=== PATIENT | male | born 1965 | race Caucasian/White ===

== ENCOUNTER 2016-09-05 08:14 | Inpatient (IN) | payer OTHER ==
[2016-09-05 10:44] VITALS: BMI 29.5
--- NOTE | 2016-09-05 12:17 | HP ---
CIWA Score - CIWA Score Nausea/Vomitin-No Nausea/No Vomiting Muscle Tremors: 4-Moderate,w/Arms Extend Anxiety: 3 Agitation: 4-Moderately Restless Paroxysmal Sweats: 3 Orientation: 0-Oriented Tacttile Disturbances: 0-None Auditory Disturbances: 0-None Visual Disturbances: 0-None Headache: 0-None Present CIWA-Ar Total Score: 14 Admission ROS BHS - HPI Chief Complaint: I am here to detox. Allergies/Adverse Reactions: Allergies Allergy/AdvReac Type Severity Reaction Status Date / Time No Known Allergies Allergy Verified 09/05/16 10:54 History of Present Illness: pt is a 51yr old male with a history of alcohol dependence seeking detox for treatment. Exam Limitations: No Limitations - Ebola screening Have you traveled outside of the country in the last 21 days: No Have you had contact with anyone from an Ebola affected area: No Have you been sick,other than usual withdrawal symptoms: No Do you have a fever: No - Review of Systems Constitutional: Chills, Night Sweats, Changes in sleep Respiratory: reports: Cough Cardiac: reports: Syncope GI: reports: Diarrhea, Poor Appetite, Poor Fluid Intake : reports: No Symptoms Reported Musculoskeletal: reports: Other (nerve pain to both feet d/t diabetes) Integumentary: reports: Flushing, Sweating Neuro: reports: Headache, Tingling, Tremors Endocrine: reports: Excessive Sweating, Flushing, Intolerance to Cold, Intolerance to Heat Hematology: reports: No Symptoms Reported Psychiatric: reports: Judgement Intact, Mood/Affect Appropiate, Orientated x3, Agitated, Anxious Other Systems: Reviewed and Negative Patient History - Patient Medical History Hx Anemia: No Hx Asthma: No Hx Chronic Obstructive Pulmonary Disease (COPD): No Hx Cancer: No Hx Cardiac Disorders: No Hx Congestive Heart Failure: No Hx Hypertension: Yes Hx Hypercholesterolemia: Yes Hx Pacemaker: No HX Cerebrovascular Accident: No Hx Seizures: No Hx Dementia: No Hx Diabetes: Yes (metformin 2000mg daily) Hx Gastrointestinal Disorders: No Hx Liver Disease: No Hx Genitourinary Disorders: No Hx Sexually Transmitted Disorders: No Hx Renal Disease (ESRD): No Hx Thyroid Disease: No Hx Human Immunodeficiency Virus (HIV): No Hx Hepatitis C: No Hx Depression: Yes Hx Suicide Attempt: Yes (denies any S/H ideation) Hx Bipolar Disorder: No Hx Schizophrenia: No - Patient Surgical History Past Surgical History: Yes Hx Neurologic Surgery: No Hx Cataract Extraction: No Hx Cardiac Surgery: No Hx Lung Surgery: No Hx Breast Surgery: No Hx Breast Biopsy: No Hx Abdominal Surgery: No Hx Appendectomy: No Hx Cholecystectomy: No Hx Genitourinary Surgery: No Hx Section: No Hx Orthopedic Surgery: No Other Surgical History: 2012 nasal + throat Anesthesia Reaction: No - PPD History Previous Implant?: Yes Documented Results: Negative w/proof Implanted On Prior [facility] Admission?: No PPD to be Administered?: Yes - Reproductive History Patient is a Female of Child Bearing Age (11 -55 yrs old): No - Smoking Cessation Smoking history: Current every day smoker Have you smoked in the past 12 months: Yes Aproximately how many cigarettes per day: 20 Cigars Per Day: 0 Hx Chewing Tobacco Use: No Initiated information on smoking cessation: Yes 'Breaking Loose' booklet given: 09/12/16 - Substance & Tx. History Hx Alcohol Use: Yes Hx Substance Use: Yes Substance Use Type: Alcohol, Marijuana - Substances Abused Alcohol Route: Oral Frequency: Daily Amount used: vodka(1 pint)/beer(6 pks-24 oz cans) Age of first use: 12 Date of Last Use: 09/04/16 Marijuana/Hashish Route: Smoking Frequency: 1-3 times last 30 days Amount used: 1 blunt Age of first use: 13 Date of Last Use: 09/02/16 Family Disease History - Family Disease History Family Disease History: [place]: Mother (), Other: Father (), Brother (no contact), Sister (no contact) Admission Physical Exam S - Vital Signs Vital Signs: Vital Signs - 24 hr 09/05/16 10:42 Temperature 97 F L Pulse Rate 84 Respiratory 20 Rate Blood Pressure 149/84 - Physical General Appearance: Yes: Appropriately Dressed, Tremorous, Irritable, Sweating, Anxious HEENTM: Yes: Within Normal Limits, Hearing grossly Normal, Nasal Congestion, Muffled/Hoarse Voice Respiratory: Yes: Lungs Clear, Normal Breath Sounds, No Respiratory Distress Neck: Yes: No masses,lesions,Nodules Breast: Yes: Within Normal Limits Cardiology: Yes: Regular Rhythm, Regular Rate, S1, S2 Abdominal: Yes: Normal Bowel Sounds, Non Tender, Soft Genitourinary: Yes: Within Normal Limits Back: Yes: Normal Inspection Musculoskeletal: Yes: full range of Motion Extremities: Yes: Normal Capillary Refill, Tremors Neurological: Yes: Fully Oriented, Alert, Normal Response Integumentary: Yes: Normal Color, Diaphoresis Lymphatic: Yes: Within Normal Limits - Diagnostic (1) Alcohol dependence with uncomplicated withdrawal Current Visit: Yes Status: Chronic (2) Nicotine dependence Current Visit: Yes Status: Chronic Qualifiers: Nicotine product type: cigarettes Substance use status: uncomplicated Qualified Code(s): F17.210 - Nicotine dependence, cigarettes, uncomplicated (3) Diabetes mellitus type II, controlled Current Visit: Yes Status: Chronic Qualifiers: Diabetes mellitus complication status: with neurologic complications Diabetes mellitus complication detail: with polyneuropathy Diabetes mellitus fci insulin use: without manager long term care use Qualified Code(s): E11.42 - Type 2 diabetes mellitus with diabetic polyneuropathy; Z79.4 - [facility] (current) use of insulin Comment: last dose metformin "a year ago" (4) Hyperlipidemia Current Visit: Yes Status: Chronic Qualifiers: Hyperlipidemia type: pure hypercholesterolemia Qualified Code(s): E78.00 - Pure hypercholesterolemia, unspecified; E78.0 - Pure hypercholesterolemia Comment: last dose a year ago (5) Hypertension Current Visit: Yes Status: Chronic Qualifiers: Hypertension type: essential hypertension Qualified Code(s): I10 - Essential (primary) hypertension (6) Asthma Current Visit: Yes Status: Acute Qualifiers: Asthma severity: mild intermittent Cleared for Admission S - Detox or Rehab [facility] Level of Care: Medically Managed Detox Regimen/Protocol: Librium [facility] Breath Alcohol Content Breath Alcohol Content: 0 Urine Drug Screen - Results Drug Screen Negative: No Urine Drug Screen Results: THC-Marijuana
[2016-09-05] MEDS ORDERED: MAGNESIUM CITRATE 300 ML BOTTLE PO PRN (12:28)
[2016-09-05] MEDS ORDERED: diphenhydrAMINE HCL 50 MG CAPSULE PO PRN (12:28)
[2016-09-05] MEDS ORDERED: MENTHOL/PHENOL 1 EACH UD MM PRN (12:28)
[2016-09-05] MEDS ORDERED: NICOTINE POLACRILEX 4 MG GUM BUC PRN (12:28)
[2016-09-05] MEDS ORDERED: P-EPHED 60MG/TRIPROLIDI 2.5MG TABLET PO PRN (12:28)
[2016-09-05] MEDS ORDERED: guaiFENesin/D-METHORPHAN HB 10 ML UNIT-DOSE CUPS PO PRN (12:28)
[2016-09-05] MEDS ORDERED: hydrOXYzine PAMOATE 50 MG CAPSULE (FP) PO PRN (12:28)
[2016-09-05] MEDS ORDERED: chlordiazePOXIDE HCL 25 MG CAPSULE PO PRN (12:28)
[2016-09-05] MEDS ORDERED: ACETAMINOPHEN 325 MG TABLET (FP) PO PRN (12:28)
[2016-09-05] MEDS ORDERED: LOPERAMIDE HCL 2 MG CAPSULE PO PRN (12:28)
[2016-09-05] MEDS ORDERED: MAGNESIUM HYDROX 2400MG/30ML ORAL SUSPENSION 30 ML CUP PO PRN (12:28)
[2016-09-05] MEDS ORDERED: IBUPROFEN 400 MG TABLET (FP) PO PRN (12:28)
[2016-09-05] MEDS ORDERED: MAG HYDROX/AL HYDROX/SIMETH 30 ML UNIT-DOSE CUP PO PRN (12:28)
[2016-09-05] MEDS ORDERED: chlordiazePOXIDE HCL 25 MG CAPSULE PO ONE (12:34)
--- NOTE | 2016-09-05 13:46 | CONSULT ---
[facility] Psychiatric Consult - Data Date of interview: 09/05/16 Admission source: [facility] Identifying data: First admission to [facility] for this 51 y/o male seeking detox treatment for alcohol and marijuana dependence.Patient is single without children,homeless,unemployed and supported on odd jobs. Substance Abuse History: - Smoking Cessation. Smoking history: Current every day smoker. Have you smoked in the past 12 months: Yes. Aproximately how many cigarettes per day: 20. Cigars Per Day: 0. Hx Chewing Tobacco Use: No. Initiated information on smoking cessation: Yes. 'Breaking Loose' booklet given : 09/12/16. - Substance & Tx. History. Hx Alcohol Use: Yes. Hx Substance Use : Yes. Substance Use Type: Alcohol, Marijuana. - Substances Abused. Alcohol. Route: Oral. Frequency: Daily. Amount used: vodka(1 pint)/beer(6 pks -24 oz cans). Age of first use: 12. Date of Last Use: 09/04/16. Marijuana/ Hashish. Route: Smoking. Frequency: 1-3 times last 30 days. Amount used: 1 blunt. Age of first use: 13. Date of Last Use: 09/02/16. Confirmed by patient. Medical History: Hypertension,hypercholesterolemia and diabetes mellitus. Psychiatric History: Patient denies history of psychiatric hospitalizations.Mr Aaliyah bolanos having a psychiatric diagnosis although he endorses past OPD care at the [facility] in [facility].Patient reports a history of suicidal ideation to jump onto train tracks in 2016 (did not act on his impulses). Physical/Sexual Abuse/Trauma History: Patient denies. Additional Comment: Urine Drug Screen Results: THC-Marijuana.Noted. Mental Status Exam - Mental Status Exam Alert and Oriented to: Time, Place, Person Cognitive Function: Good Patient Appearance: Well Groomed Mood: Hopeful, Euthymic Affect: Appropriate, Normal Range Patient Behavior: Fatigued, Appropriate, Cooperative Speech Pattern: Clear, Appropriate Voice Loudness: Normal Thought Process: Goal Oriented Thought Disorder: Not Present Hallucinations: Denies Suicidal Ideation: Denies Homicidal Ideation: Denies Insight/Judgement: Poor Sleep: Poorly, Difficulty falling asleep Appetite: Good Muscle strength/Tone: Normal Gait/Station: Normal Psychiatric Findings - Problem List ([place] 1, 2,3) (1) Alcohol dependence with uncomplicated withdrawal Current Visit: Yes Status: Acute (2) Nicotine dependence Current Visit: Yes Status: Acute Qualifiers: Nicotine product type: cigarettes Substance use status: uncomplicated Qualified Code(s): F17.210 - Nicotine dependence, cigarettes, uncomplicated (3) Marijuana dependence Current Visit: Yes Status: Acute (4) Substance induced mood disorder Current Visit: Yes Status: Acute (5) Asthma Current Visit: Yes Status: Chronic Qualifiers: Asthma severity: mild intermittent (6) Diabetes mellitus type II, controlled Current Visit: Yes Status: Chronic Qualifiers: Diabetes mellitus complication status: with neurologic complications Diabetes mellitus complication detail: with polyneuropathy Diabetes mellitus laborer marine terminal insulin use: without long-term use Qualified Code(s): E11.42 - Type 2 diabetes mellitus with diabetic polyneuropathy; Z79.4 - [employer] (current) use of insulin Comment: last dose metformin "a year ago" (7) Hyperlipidemia Current Visit: Yes Status: Chronic Qualifiers: Hyperlipidemia type: pure hypercholesterolemia Qualified Code(s): E78.00 - Pure hypercholesterolemia, unspecified; E78.0 - Pure hypercholesterolemia Comment: last dose a year ago (8) Hypertension Current Visit: Yes Status: Chronic Qualifiers: Hypertension type: essential hypertension Qualified Code(s): I10 - Essential (primary) hypertension (9) S/P nasal polypectomy Current Visit: No Status: Resolved (10) Insomnia Current Visit: Yes Status: Acute - Initial Treatment Plan Initial Treatment Plan: Psychoeducation.Detoxification.Ambien 10 mg po hs.Patient is made aware of risk of parasomnias.Observation.
[2016-09-05] MEDS ORDERED: ALBUTEROL SO4 2.5/IPRATROPIUM 0.5 INH SOL 3 ML VIAL.NEB. NEB ONE (13:51)
--- NOTE | 2016-09-05 16:17 | EKG ---
Test Reason : Blood Pressure : / mmHG Vent. Rate : 078 BPM Atrial Rate : 078 BPM P-R Int : 148 ms QRS Dur : 094 ms QT Int : 412 ms P-R-T Axes : 051 089 044 degrees QTc Int : 469 ms NORMAL SINUS RHYTHM NORMAL ECG NO PREVIOUS ECGS AVAILABLE Confirmed by ANITA LOPEZ, LASHAY ([id number]) on 09/05/2016 4:16:58 PM Referred By: Confirmed By:LASHAY HOWARD MD
[2016-09-05] MEDS: metFORMIN HCL 500 MG TABLET (FP) PO SCH (17:43)
[2016-09-05] MEDS: chlordiazePOXIDE HCL 25 MG CAPSULE PO SCH ×2 (17:44→22:53)
[2016-09-05 20:47] LABS: URINE APPEARANCE CLEAR; URINE BILIRUBIN NEGATIVE (NEGATIVE); URINE BLOOD NEGATIVE (NEGATIVE); URINE COLOR AMBER; URINE GLUCOSE (UA) 1+ (NEGATIVE); URINE KETONE TRACE (NEGATIVE); URINE LEUK ESTERASE NEGATIVE (NEGATIVE); URINE NITRITE NEGATIVE (NEGATIVE); URINE UROBILINOGEN 2.0 E.U/dl E.U./dl (0.2-1.0)
[2016-09-05 20:53] LABS: URINE PROTEIN 2+ (NEGATIVE)
[2016-09-05 20:58] LABS: URINE MUCUS RARE; URINE RBC 1 /hpf (0-3); URINE WBC <1 /hpf (3-5)
[2016-09-05] MEDS: THIAMINE HCL 100 MG TABLET (FP) PO SCH (22:53)
[2016-09-05] MEDS: ATORVASTATIN CA 40 MG TABLET (FP) PO SCH (22:53)
[2016-09-05] MEDS: ZOLPIDEM TARTRATE 10 MG TABLET (PARK CARE ONLY) PO PRN (22:53)
[2016-09-06] MEDS: chlordiazePOXIDE HCL 25 MG CAPSULE PO SCH ×4 (06:57→22:25)
[2016-09-06] MEDS: metFORMIN HCL 500 MG TABLET (FP) PO SCH ×2 (06:57→17:51)
[2016-09-06 09:57] LABS: MCHC 34.3 g/dl (32.0-35.9); MEAN CELL VOLUME 99.3 fl (80-96); PLATELET COUNT 152 K/MM3 (134-434)
[2016-09-06] MEDS: PRENATAL VITAMINS W/ FOLIC ACID TABLET (FP) PO SCH (10:40)
[2016-09-06 10:41] LABS: ALBUMIN 3.9 g/dl (3.4-5.0); ALK PHOS 143 U/L (45-117); ANION GAP 11 (8-16); BILIRUBIN,TOTAL 1.1 mg/dL (0.2-1.0); CALCIUM 8.8 mg/dL (8.5-10.1); CO2 29 mmol/L (21-32); COCKROFT - GAULT 99.65; CREATININE 1.1 mg/dL (0.7-1.3); GLUCOSE,RANDOM 236 mg/dL (74-106); SGOT/AST 93 U/L (15-37); SGPT/ALT 69 U/L (12-78); TOT PROT 7.6 g/dl (6.4-8.2)
[2016-09-06] MEDS: NICOTINE 21 MG/24 HOURS TOPICAL PATCH TD SCH (10:42)
--- NOTE | 2016-09-06 11:24 | PN ---
S CIWA - CIWA Score Nausea/Vomitin Muscle Tremors: 3 Anxiety: 3 Agitation: 3 Paroxysmal Sweats: 2 Orientation: 0-Oriented Tacttile Disturbances: 1-Very Mild Itch/Numbness Auditory Disturbances: 1-Very Mild Visual Disturbances: 1-Very Mild Sensitivity Headache: 2-Mild CIWA-Ar Total Score: 19 BHS Progress Note (SOAP) Subjective: ALERT,IRRITABLE,ANXIOUS,INTERRUPTED SLEEP,TREMOR Objective: 09/06/16 11:22 Vital Signs Temperature 96.4 F L 09/06/16 10:00 Pulse Rate 86 09/06/16 10:00 Respiratory Rate 20 09/06/16 10:00 Blood Pressure 151/78 09/06/16 10:00 O2 Sat by Pulse Oximetry (%) 09/06/16 11:22 EKG NSR Assessment: 09/06/16 11:23 WITHDRAWAL SYMPTOM LABS PENDING Plan: CONTINUE DETOX
[2016-09-06] MEDS: glyBURIDE 2.5 MG TABLET (FP) PO SCH (18:07)
[2016-09-06] MEDS: ATORVASTATIN CA 40 MG TABLET (FP) PO SCH (22:25)
[2016-09-06] MEDS: ZOLPIDEM TARTRATE 10 MG TABLET (PARK CARE ONLY) PO PRN (22:26)
[2016-09-06] MEDS: THIAMINE HCL 100 MG TABLET (FP) PO SCH (22:26)
[2016-09-07] MEDS: chlordiazePOXIDE HCL 25 MG CAPSULE PO SCH ×2 (06:21→10:41)
[2016-09-07] MEDS: metFORMIN HCL 500 MG TABLET (FP) PO SCH ×2 (06:26→17:00)
[2016-09-07] MEDS: glyBURIDE 2.5 MG TABLET (FP) PO SCH (06:26)
[2016-09-07] MEDS: PRENATAL VITAMINS W/ FOLIC ACID TABLET (FP) PO SCH (10:40)
--- NOTE | 2016-09-07 10:40 | PN ---
[facility] CIWA - CIWA Score Nausea/Vomitin Muscle Tremors: 3 Anxiety: 3 Agitation: 2 Paroxysmal Sweats: 1-Minimal Palms Moist Orientation: 0-Oriented Tacttile Disturbances: 1-Very Mild Itch/Numbness Auditory Disturbances: 1-Very Mild Visual Disturbances: 1-Very Mild Sensitivity Headache: 2-Mild CIWA-Ar Total Score: 17 BHS Progress Note (SOAP) Subjective: ALERT,IRRITABLE,ANXIOUS,INTERRUPTED SLEEP,TREMOR Objective: 09/07/16 10:39 Vital Signs Temperature 98.4 F 09/07/16 09:30 Pulse Rate 88 09/07/16 09:30 Respiratory Rate 18 09/07/16 09:30 Blood Pressure 129/76 09/07/16 09:30 O2 Sat by Pulse Oximetry (%) Laboratory Last Values WBC 6.0 K/mm3 (4.0-10.0) 09/06/16 06:00 RBC 4.88 M/mm3 (4.00-5.60) 09/06/16 06:00 Hgb 16.6 GM/dL (11.7-16.9) 09/06/16 06:00 Hct 48.5 % (35.4-49) 09/06/16 06:00 MCV 99.3 fl (80-96) H 09/06/16 06:00 MCHC 34.3 g/dl (32.0-35.9) 09/06/16 06:00 RDW 13.0 % (11.9-15.9) 09/06/16 06:00 Plt Count 152 K/MM3 (134-434) 09/06/16 06:00 MPV 8.0 fl (7.5-11.1) 09/06/16 06:00 Sodium 135 mmol/L (136-145) L 09/06/16 06:00 Potassium 4.3 mmol/L (3.5-5.1) 09/06/16 06:00 Chloride 95 mmol/L (98-107) L 09/06/16 06:00 Carbon Dioxide 29 mmol/L (21-32) 09/06/16 06:00 Anion Gap 11 (8-16) 09/06/16 06:00 BUN 12 mg/dL (7-18) 09/06/16 06:00 Creatinine 1.1 mg/dL (0.7-1.3) 09/06/16 06:00 Creat Clearance w eGFR > 60 (>60) 09/06/16 06:00 POC Glucometer 198 UNITS (()) 09/07/16 06:25 Random Glucose 236 mg/dL (74-106) H 09/06/16 06:00 Calcium 8.8 mg/dL (8.5-10.1) 09/06/16 06:00 Total Bilirubin 1.1 mg/dL (0.2-1.0) H 09/06/16 06:00 AST 93 U/L (15-37) H 09/06/16 06:00 ALT 69 U/L (12-78) 09/06/16 06:00 Alkaline Phosphatase 143 U/L (45-117) H 09/06/16 06:00 Total Protein 7.6 g/dl (6.4-8.2) 09/06/16 06:00 Albumin 3.9 g/dl (3.4-5.0) 09/06/16 06:00 Urine Color Jelena 09/05/16 15:45 Urine Appearance Clear 09/05/16 15:45 Urine pH 5.0 (5.0-8.0) 09/05/16 15:45 Ur Specific [place] 1.020 (1.005-1.025) 09/05/16 15:45 Urine Protein 2+ (NEGATIVE) H 09/05/16 15:45 Urine Glucose (UA) 1+ (NEGATIVE) H 09/05/16 15:45 Urine Ketones Trace (NEGATIVE) H 09/05/16 15:45 Urine Blood Negative (NEGATIVE) 09/05/16 15:45 Urine Nitrite Negative (NEGATIVE) 09/05/16 15:45 Urine Bilirubin Negative (NEGATIVE) 09/05/16 15:45 Urine Urobilinogen 2.0 e.u/dl E.U./dl (0.2-1.0) 09/05/16 15:45 Ur Leukocyte Esterase Negative (NEGATIVE) 09/05/16 15:45 Urine RBC 1 /hpf (0-3) 09/05/16 15:45 Urine WBC <1 /hpf (3-5) 09/05/16 15:45 Ur Epithelial Cells Rare /hpf (FEW) 09/05/16 15:45 Urine Mucus Rare 09/05/16 15:45 RPR Titer Nonreactive (NONREACTIVE) 09/06/16 06:00 Assessment: 09/07/16 10:40 WITHDRAWAL SYMPTOM Plan: CONTINUE DETOX,BGM MONITORING,CONTINUE METFORMIN AND GLYBURIDE
[2016-09-07] MEDS: NICOTINE 21 MG/24 HOURS TOPICAL PATCH TD SCH (10:55)
[2016-09-07] MEDS ORDERED: glyBURIDE 2.5 MG TABLET (FP) PO ONE (11:47)
[2016-09-07] MEDS: chlordiazePOXIDE 5 MG CAPSULE PO SCH ×2 (17:00→22:29)
[2016-09-07] MEDS: ALBUTEROL SO4 2.5/IPRATROPIUM 0.5 INH SOL 3 ML VIAL.NEB. NEB PRN (21:02)
[2016-09-07] MEDS: ATORVASTATIN CA 40 MG TABLET (FP) PO SCH (22:30)
[2016-09-07] MEDS: THIAMINE HCL 100 MG TABLET (FP) PO SCH (22:30)
[2016-09-08] MEDS: chlordiazePOXIDE 5 MG CAPSULE PO SCH ×2 (05:58→10:37)
[2016-09-08] MEDS: metFORMIN HCL 500 MG TABLET (FP) PO SCH ×2 (06:00→17:36)
[2016-09-08] MEDS: glyBURIDE 2.5 MG TABLET (FP) PO SCH (07:37)
[2016-09-08] MEDS ORDERED: GABAPENTIN 100 MG CAPSULE (FP) PO ONE (09:45)
[2016-09-08] MEDS: NICOTINE 21 MG/24 HOURS TOPICAL PATCH TD SCH (10:37)
[2016-09-08] MEDS: PRENATAL VITAMINS W/ FOLIC ACID TABLET (FP) PO SCH (10:37)
[2016-09-08] MEDS: ALBUTEROL SO4 2.5/IPRATROPIUM 0.5 INH SOL 3 ML VIAL.NEB. NEB PRN ×2 (10:43→19:57)
--- NOTE | 2016-09-08 10:56 | PN ---
S Progress Note (SOAP) Subjective: ALERT,IRRITABLE,ANXIOUS,INTERRUPTED SLEEP Objective: 09/08/16 10:55 Vital Signs Temperature 97.9 F 09/08/16 09:50 Pulse Rate 90 09/08/16 09:50 Respiratory Rate 18 09/08/16 09:50 Blood Pressure 122/71 09/08/16 09:50 O2 Sat by Pulse Oximetry (%) Assessment: 09/08/16 10:55 WITHDRAWAL SYMPTOM Plan: CONTINUE DETOX,DISCHARGE IN AM
[2016-09-08] MEDS: GABAPENTIN 100 MG CAPSULE (FP) PO SCH ×2 (14:22→22:27)
[2016-09-08] MEDS: chlordiazePOXIDE HCL 10 MG CAPSULE PO SCH ×2 (17:36→22:27)
[2016-09-08] MEDS: THIAMINE HCL 100 MG TABLET (FP) PO SCH (22:27)
[2016-09-08] MEDS: ATORVASTATIN CA 40 MG TABLET (FP) PO SCH (22:27)
[2016-09-08] MEDS: ZOLPIDEM TARTRATE 10 MG TABLET (PARK CARE ONLY) PO PRN (22:28)
[2016-09-09] MEDS: chlordiazePOXIDE HCL 10 MG CAPSULE PO SCH (05:53)
[2016-09-09] MEDS: GABAPENTIN 100 MG CAPSULE (FP) PO SCH (05:53)
[2016-09-09 06:20] VITALS: BP 119/62; PULSE 85; TEMP 97.9
[2016-09-09] MEDS: glyBURIDE 2.5 MG TABLET (FP) PO SCH (07:26)
[2016-09-09] MEDS: metFORMIN HCL 500 MG TABLET (FP) PO SCH (07:26)
--- NOTE | 2016-09-09 08:22 | PN ---
S Progress Note (SOAP) Subjective: ALERT,NO COMPLAINT Objective: 09/09/16 08:20 Vital Signs Temperature 97.9 F 09/09/16 06:19 Pulse Rate 85 09/09/16 06:19 Respiratory Rate 20 09/09/16 06:19 Blood Pressure 119/62 09/09/16 06:19 O2 Sat by Pulse Oximetry (%) Assessment: 09/09/16 08:21 DETOX COMPLETED,NO WITHDRAWAL SYMPTOM Plan: DISCHARGE TODAY,FOLLOW UP WITH AFTER CARE PROGRAM ARRANGEMENT
--- NOTE | 2016-09-09 08:25 | DS ---
[facility] Detox Discharge Summary Admission Date: 09/05/16 Discharge Date: 09/09/16 - History Present History: Alcohol Dependence Additional Comments: FOLLOW UP WITH AFTER [facility] PROGRAM ARRANGEMENT AND PMD FOR MEDICAL PROBLEM Pertinent Past History: TYPE 2 DM HYPERLIPIDEMIA NICOTINE DEPENDENCE - Physical Exam Results Vital Signs: Vital Signs Temperature 97.9 F 09/09/16 06:19 Pulse Rate 85 09/09/16 06:19 Respiratory Rate 20 09/09/16 06:19 Blood Pressure 119/62 09/09/16 06:19 O2 Sat by Pulse Oximetry (%) Pertinent Admission Physical Exam Findings: WITHDRAWAL SYMPTOM - Treatment Hospital Course: Detox Protocol Followed, Detoxed Safely, Responded well, Discharged Condition Good Patient has Accepted a Rehab Referral to: DECLINED - Medication Discharge Medications: Ambulatory Orders Albuterol Sulfate Inhaler - [Ventolin HFA Inhaler -] 2 puff IH Q4H PRN #1 inhaler 09/09/16 Atorvastatin Ca [Lipitor] 40 mg PO HS #30 tab 09/09/16 Gabapentin [Neurontin -] 100 mg PO TID #90 tab 09/09/16 Glyburide 2.5 mg PO DAILY #30 tab 09/09/16 Metformin HCl [Glucophage] 1,000 mg PO BID #60 tab 09/09/16 - Diagnosis (1) Alcohol dependence with uncomplicated withdrawal Status: Acute (2) Nicotine dependence Status: Acute Qualifiers: Nicotine product type: cigarettes Substance use status: uncomplicated Qualified Code(s): F17.210 - Nicotine dependence, cigarettes, uncomplicated (3) Asthma Status: Chronic Qualifiers: Asthma severity: mild intermittent (4) Diabetes mellitus type II, controlled Status: Chronic Qualifiers: Diabetes mellitus complication status: with neurologic complications Diabetes mellitus complication detail: with polyneuropathy Diabetes mellitus residential insulin use: without termite technician use Qualified Code(s): E11.42 - Type 2 diabetes mellitus with diabetic polyneuropathy; Z79.4 - termite technician (current) use of insulin (5) Hyperlipidemia Status: Chronic Qualifiers: Hyperlipidemia type: pure hypercholesterolemia Qualified Code(s): E78.00 - Pure hypercholesterolemia, unspecified; E78.0 - Pure hypercholesterolemia - AMA Did Patient Leave Against Medical Advice: No
[2016-09-09] MEDS ORDERED: ALBUTEROL SO4 6.7 GM HFA INHALER IH PRN (08:28)
== END 2016-09-09 09:30 | disposition home or self-care (01) | DRG 775 ==
LOC: YASAS 08:14 → Y6N 11:56
PROVIDERS: ADMIT Internal Medicine; ATTEND Internal Medicine
PROC: HZ2ZZZZ Detoxification Services for Substance Abuse Treatment (ICD-10-PCS; principal; 2016-09-05)
DX: F10.230 Alcohol dependence with withdrawal, uncomplicated (principal); F17.210 Nicotine dependence, cigarettes, uncomplicated; F19.24 Other psychoactive substance dependence with psychoactive substance-induced mood disorder; I10 Essential (primary) hypertension; E11.42 Type 2 diabetes mellitus with diabetic polyneuropathy; J45.20 Mild intermittent asthma, uncomplicated; E78.5 Hyperlipidemia, unspecified; G47.00 Insomnia, unspecified; Z79.84 Long term (current) use of oral hypoglycemic drugs; Z91.5 Personal history of self-harm
CPT/HCPCS: 36415; 80053; 81003; 81015; 85027; 86593; 93005; 93010; 94640

== ENCOUNTER 2018-06-08 21:19 | Inpatient (IN) | payer OTHER ==
[2018-06-08 21:52] VITALS: BMI 30.2
[2018-06-08] MEDS ORDERED: MELATONIN 5 MG TABLETS PO PRN (22:00)
--- NOTE | 2018-06-08 23:03 | HP ---
CIWA Score Nausea/Vomitin-No Nausea/No Vomiting Muscle Tremors: 1-None Visible, but [place] Anxiety: 4-Mod. Anxious/Guarded Agitation: 4-Moderately Restless Paroxysmal Sweats: 4-Forehead w/Sweat Beads Orientation: 0-Oriented Tacttile Disturbances: 0-None Auditory Disturbances: 0-None Visual Disturbances: 0-None Headache: 0-None Present CIWA-Ar Total Score: 13 - Admission Criteria [facility]AS[facility] Guidelines: Admission for Medically Managed Detox: Requires at least one of the followin. CIWA greater than 12 2. Seizures within the past 24 hours 3. Delirium tremens within the past 24 hours 4. Hallucinations within the past 24 hours 5. Acute intervention needed for co occurring medical disorder 6. Acute intervention needed for co occurring psychiatric disorder 7. Severe withdrawal that cannot be handled at a lower level of care (continued vomiting, continued diarrhea, abnormal vital signs) requiring intravenous medication and/or fluids 8. Patient presents the following: CIWA greater than 12 Admission Criteria Met: Admission criteria met Admission ROS [facility] Chief Complaint: C/O WORSENING WITHDRAWAL SX'S. SEEKING DETOX FROM ALCOHOL Allergies/Adverse Reactions: Allergies Allergy/AdvReac Type Severity Reaction Status Date / Time No Known Allergies Allergy Verified 06/09/18 02:33 History of Present Illness: 53 Y.O. MALE WITH ALCOHOLISM HERE FOR DETOX. CLIENT IS SELF REFERRED. HE IS KNOWN TO THIS PROGRAM. LAST HERE 2016. PRESENTS WITH C/O WORSENING WITHDRAWAL SX 'S, CIWA 13. REPORTS LONGEST CLEAN TIME 14 MONTHS RELAPSING 4 DAYS AGO. CLIENT REPORTS HX/O DT'S WITH WITHDRAWAL SX'S. UNABLE TO STOP DRINKING DUE TO WITHDRAWAL SX'S AND IS EEKING DETOX TO HELP HIM STOP. HE ALSO REPORTS HX/O SI AND SELF INJURY ASSOCIATED WITH ALCOHOL WITHDRAWAL. HX/O DM NON COMPLIANT WITH MEDICATION REGIMEN DENIES SEIZURE D/O. CURRENTLY LIVES AT [facility], UNEMPLOYED, DENIES LEGALS . Exam Limitations: No Limitations - Ebola screening Have you traveled outside of the country in the last 21 days: No (N) Have you had contact with anyone from an Ebola affected area: No Have you been sick,other than usual withdrawal symptoms: No Do you have a fever: No - Review of Systems Constitutional: Loss of Appetite, Night Sweats, Changes in sleep EENT: reports: Dental Problems (MISSING TEETH) Respiratory: reports: No Symptoms reported Cardiac: reports: No Symptoms Reported GI: reports: Poor Appetite, Poor Fluid Intake : reports: No Symptoms Reported Musculoskeletal: reports: Back Pain (CHRONIC), Joint Pain (CHRONIC), Neck Pain ( CHRONIC) Integumentary: reports: Flushing Neuro: reports: No Symptoms reported Endocrine: reports: Other (HX/O DM) Hematology: reports: No Symptoms Reported Psychiatric: reports: Orientated x3, Agitated (IRRITABLE), Anxious, Depressed Other Systems: Reviewed and Negative Patient History - Patient Medical History Hx Anemia: No Hx Asthma: No Hx Chronic Obstructive Pulmonary Disease (COPD): No Hx Cancer: No Hx Cardiac Disorders: No Hx Congestive Heart Failure: No Hx Hypertension: Yes Hx Hypercholesterolemia: Yes Hx Pacemaker: No HX Cerebrovascular Accident: No Hx Seizures: No Hx Dementia: No Hx Diabetes: Yes (NOT TAKING MEDS) Hx Gastrointestinal Disorders: No Hx Liver Disease: No Hx Genitourinary Disorders: No Hx Sexually Transmitted Disorders: No Hx Renal Disease (ESRD): No Hx Thyroid Disease: No Hx Human Immunodeficiency Virus (HIV): No Hx Hepatitis C: No Hx Depression: Yes Hx Suicide Attempt: Yes Hx Bipolar Disorder: No Hx Schizophrenia: No - Patient Surgical History Past Surgical History: Yes Hx Neurologic Surgery: No Hx Cataract Extraction: No Hx Cardiac Surgery: No Hx Lung Surgery: No Hx Breast Surgery: No Hx Breast Biopsy: No Hx Abdominal Surgery: No Hx Appendectomy: No Hx Cholecystectomy: No Hx Genitourinary Surgery: No Hx Section: No Hx Orthopedic Surgery: No Other Surgical History: 2013 nasal + throat Anesthesia Reaction: No - PPD History Previous Implant?: Yes Documented Results: Negative w/proof Implanted On Prior [facility] Admission?: Yes Date: 09/07/16 Results: 0MM PPD to be Administered?: Yes - Smoking Cessation Smoking history: Current every day smoker Have you smoked in the past 12 months: Yes Aproximately how many cigarettes per day: 20 Cigars Per Day: 0 Hx Chewing Tobacco Use: No Initiated information on smoking cessation: Yes 'Breaking Loose' booklet given: 06/08/18 - Substance & Tx. History Hx Alcohol Use: Yes Hx Substance Use: Yes Substance Use Type: Alcohol Hx Substance Use Treatment: Yes ([facility]) - Substances Abused VODKA/BEER Route: Oral Frequency: Daily Amount used: 2 PINTS/ 3 TALL BOYS Age of first use: 14 Date of Last Use: 06/08/18 Family Disease History - Family Disease History Family Disease History: [place]: Mother (), Other: Father (), Brother (no contact), Sister (no contact) Admission Physical Exam [facility] - Vital Signs Vital Signs: Vital Signs - 24 hr 06/08/18 21:50 Temperature 98.5 F Pulse Rate 97 H Respiratory 18 Rate Blood Pressure 148/73 - Physical General Appearance: Yes: Appropriately Dressed, Alcohol on Breath, Tremorous ( FELT), Anxious, Other (FLUSHED SKIN WITH REDNESS) HEENTM: Yes: EOMI, Normocephalic, Normal Voice, JODI, Pharynx Normal, Other ( MISSING TEETH) Respiratory: Yes: Chest Non-Tender, Lungs Clear, Normal Breath Sounds, No Respiratory Distress, No Accessory Muscle Use Neck: Yes: No masses,lesions,Nodules, Supple, Trachea in good position Breast: Yes: Breast Exam Deferred Cardiology: Yes: Regular Rhythm, Regular Rate, S1, S2 Abdominal: Yes: Normal Bowel Sounds, Non Tender, Soft, Protuberent Genitourinary: Yes: Within Normal Limits (NO C/O) Back: Yes: Normal Inspection Musculoskeletal: Yes: full range of Motion, Gait Steady Extremities: Yes: Normal Capillary Refill, Normal Range of Motion, Non-Tender, Tremors (FELT) Neurological: Yes: director of informatics II-XII NML intact, Fully Oriented, Alert, Motor Strength 5/5, Depressed Affect Integumentary: Yes: Warm, Other (FLUSHED RED SKIN) Lymphatic: Yes: Within Normal Limits - Diagnostic (1) At risk for dehydration Current Visit: Yes Status: Acute (2) Flushed complexion Current Visit: Yes Status: Acute (3) Non compliance w medication regimen Current Visit: Yes Status: Chronic (4) Alcohol dependence with uncomplicated withdrawal Current Visit: Yes Status: Acute (5) Insomnia Current Visit: Yes Status: Chronic (6) Nicotine dependence Current Visit: Yes Status: Chronic Qualifiers: Nicotine product type: cigarettes Substance use status: uncomplicated Qualified Code(s): F17.210 - Nicotine dependence, cigarettes, uncomplicated (7) Substance induced mood disorder Current Visit: Yes Status: Chronic (8) Diabetes mellitus type II, controlled Current Visit: Yes Status: Chronic Qualifiers: Diabetes mellitus snf insulin use: without snf use Diabetes mellitus complication status: with neurologic complications Diabetes mellitus complication detail: with polyneuropathy Qualified Code(s): E11.42 - Type 2 diabetes mellitus with diabetic polyneuropathy Comment: last dose metformin "a year ago" (9) Hyperlipidemia Current Visit: No Status: Chronic Qualifiers: Hyperlipidemia type: pure hypercholesterolemia Qualified Code(s): E78.00 - Pure hypercholesterolemia, unspecified Comment: last dose a year ago (10) Hypertension Current Visit: Yes Status: Chronic Qualifiers: Hypertension type: essential hypertension Qualified Code(s): I10 - Essential (primary) hypertension (11) Depression (emotion) Current Visit: No Status: Suspected Qualifiers: Depression Type: dysthymia Qualified Code(s): F34.1 - Dysthymic disorder Cleared for Admission [facility] - Detox or Rehab S Level of Care: Medically Managed Detox Regimen/Protocol: Librium Claeared for Rehab Admission: No S Breath Alcohol Content Breath Alcohol Content: 0.197 Urine Drug Screen - Results Drug Screen Negative: Yes Inpatient Rehab Admission - Rehab Decision to Admit Inpatient rehab admission?: No
[2018-06-08] MEDS ORDERED: MAGNESIUM HYDROX 2400MG/30ML ORAL SUSPENSION 30 ML CUP PO PRN (23:07)
[2018-06-08] MEDS ORDERED: LOPERAMIDE HCL 2 MG CAPSULE PO PRN (23:07)
[2018-06-08] MEDS ORDERED: MAG HYDROX/AL HYDROX/SIMETH 30 ML UNIT-DOSE CUP PO PRN (23:07)
[2018-06-08] MEDS ORDERED: MENTHOL/PHENOL 1 EACH UD MM PRN (23:07)
[2018-06-08] MEDS ORDERED: ACETAMINOPHEN 325 MG TABLET (FP) PO PRN (23:07)
[2018-06-08] MEDS ORDERED: P-EPHED 60MG/TRIPROLIDI 2.5MG TABLET PO PRN (23:07)
[2018-06-08] MEDS ORDERED: MAGNESIUM CITRATE 300 ML BOTTLE PO PRN (23:07)
[2018-06-08] MEDS ORDERED: hydrOXYzine PAMOATE 50 MG CAPSULE (FP) PO PRN (23:07)
[2018-06-08] MEDS ORDERED: IBUPROFEN 400 MG TABLET (FP) PO PRN (23:07)
[2018-06-08] MEDS ORDERED: guaiFENesin/D-METHORPHAN HB 10 ML UNIT-DOSE CUPS PO PRN (23:07)
[2018-06-08] MEDS ORDERED: NICOTINE POLACRILEX 2 MG GUM BC PRN (23:07)
[2018-06-09] MEDS ORDERED: chlordiazePOXIDE HCL 25 MG CAPSULE PO PRN (00:17)
[2018-06-09] MEDS: chlordiazePOXIDE HCL 25 MG CAPSULE PO SCH ×4 (05:29→22:21)
[2018-06-09] MEDS: NICOTINE 21 MG/24 HOURS TOPICAL PATCH TD SCH (10:38)
[2018-06-09] MEDS: PRENATAL VITAMINS W/ FOLIC ACID TABLET (FP) PO SCH (10:38)
[2018-06-09 10:56] LABS: ALBUMIN 3.6 g/dl (3.4-5.0); ALK PHOS 112 U/L (45-117); ANION GAP 11 MMOL/L (8-16); BILIRUBIN,TOTAL 0.4 mg/dL (0.2-1); BLOOD UREA NITROGEN 10 mg/dL (7-18); CHLORIDE 101 mmol/L (98-107); CO2 26 mmol/L (21-32); CREATININE 0.6 mg/dL (0.55-1.3); GLUCOSE,RANDOM 149 mg/dL (74-106); POTASSIUM 3.4 mmol/L (3.5-5.1); SGOT/AST 16 U/L (15-37); SGPT/ALT 16 U/L (13-61); SODIUM 139 mmol/L (136-145)
[2018-06-09 11:11] LABS: HEMATOCRIT 37.7 % (35.4-49); HEMOGLOBIN 13.2 GM/dL (11.7-16.9); MCH 31.2 pg (25.7-33.7); MCHC 35.1 g/dl (32.0-35.9); MEAN CELL VOLUME 89.1 fl (80-96); MEAN PLT VOLUME 7.3 fl (7.5-11.1); PLATELET COUNT 252 K/MM3 (134-434); RBC 4.23 M/mm3 (4.00-5.60); RDW 13.5 % (11.9-15.9); WHITE BLOOD COUNT 6.3 K/mm3 (4.0-10.0)
--- NOTE | 2018-06-09 14:27 | PN ---
[facility] CIWA - CIWA Score Nausea/Vomitin-Mild Nausea/No Vomiting Muscle Tremors: 3 Anxiety: 1-Mildly Anxious Agitation: 2 Paroxysmal Sweats: 1-Minimal Palms Moist Orientation: 1-Uncertain about Date Tacttile Disturbances: 0-None Auditory Disturbances: 0-None Visual Disturbances: 0-None Headache: 1-Very Mild CIWA-Ar Total Score: 10 S Progress Note (SOAP) Subjective: tremor sweating restlessness trouble sleep at night Objective: 06/09/18 14:29 Vital Signs Temperature 98.4 F 06/09/18 13:50 Pulse Rate 88 06/09/18 13:50 Respiratory Rate 2 L 06/09/18 13:50 Blood Pressure 160/88 06/09/18 13:50 O2 Sat by Pulse Oximetry (%) Laboratory Last Values WBC 6.3 K/mm3 (4.0-10.0) 06/09/18 08:00 RBC 4.23 M/mm3 (4.00-5.60) 06/09/18 08:00 Hgb 13.2 GM/dL (11.7-16.9) 06/09/18 08:00 Hct 37.7 % (35.4-49) D 06/09/18 08:00 MCV 89.1 fl (80-96) 06/09/18 08:00 MCH 31.2 pg (25.7-33.7) 06/09/18 08:00 MCHC 35.1 g/dl (32.0-35.9) 06/09/18 08:00 RDW 13.5 % (11.9-15.9) 06/09/18 08:00 Plt Count 252 K/MM3 (134-434) D 06/09/18 08:00 MPV 7.3 fl (7.5-11.1) L 06/09/18 08:00 Sodium 139 mmol/L (136-145) 06/09/18 08:00 Potassium 3.4 mmol/L (3.5-5.1) L 06/09/18 08:00 Chloride 101 mmol/L (98-107) 06/09/18 08:00 Carbon Dioxide 26 mmol/L (21-32) 06/09/18 08:00 Anion Gap 11 MMOL/L (8-16) 06/09/18 08:00 BUN 10 mg/dL (7-18) 06/09/18 08:00 Creatinine 0.6 mg/dL (0.55-1.3) 06/09/18 08:00 Creat Clearance w eGFR > 60 (>60) 06/09/18 08:00 POC Glucometer 204 UNITS (80-120) 06/09/18 05:29 Random Glucose 149 mg/dL (74-106) H 06/09/18 08:00 Calcium 8.0 mg/dL (8.5-10.1) L 06/09/18 08:00 Total Bilirubin 0.4 mg/dL (0.2-1) 06/09/18 08:00 AST 16 U/L (15-37) 06/09/18 08:00 ALT 16 U/L (13-61) 06/09/18 08:00 Alkaline Phosphatase 112 U/L (45-117) 06/09/18 08:00 Total Protein 7.0 g/dl (6.4-8.2) 06/09/18 08:00 Albumin 3.6 g/dl (3.4-5.0) 06/09/18 08:00 RPR Titer Nonreactive (NONREACTIVE) 06/09/18 08:00 HIV 1&2 Antibody Screen Negative 06/09/18 08:00 HIV P24 Antigen Negative 06/09/18 08:00 lab noted hypertension begin lisinopril 10 mg bid 06/09/18 14:32 Assessment: 06/09/18 14:29 withdrawal sx 06/09/18 14:32 hypertension Plan: continue detox begin lisinopril
[2018-06-09] MEDS: LISINOPRIL 10 MG TABLET (FP) PO SCH ×2 (17:00→22:21)
[2018-06-09] MEDS ORDERED: POTASSIUM CHLORIDE TABS 20 MEQ TABLET.ER (FP) PO ONE (20:52)
--- NOTE | 2018-06-09 20:53 | PN ---
[facility] Progress Note Note: kdur 40 meq po x1 dose for K+ 3.4
[2018-06-09] MEDS ORDERED: THIAMINE HCL 100 MG TABLET (FP) PO SCH (22:00)
--- NOTE | 2018-06-10 02:35 | EKG ---
Test Reason : Blood Pressure : / mmHG Vent. Rate : 094 BPM Atrial Rate : 094 BPM P-R Int : 152 ms QRS Dur : 094 ms QT Int : 378 ms P-R-T Axes : 079 087 053 degrees QTc Int : 472 ms NORMAL SINUS RHYTHM NORMAL ECG WHEN COMPARED WITH ECG OF 05-SEP-2016 12:32, NO SIGNIFICANT CHANGE WAS FOUND Confirmed by LASHAY HOWARD MD ([id number]) on 06/10/2018 2:35:25 AM Referred By: PATRICK Confirmed By:LASHAY HOWARD MD
[2018-06-10] MEDS: chlordiazePOXIDE HCL 25 MG CAPSULE PO SCH ×2 (07:18→10:38)
[2018-06-10] MEDS: LISINOPRIL 10 MG TABLET (FP) PO SCH (10:38)
[2018-06-10] MEDS: PRENATAL VITAMINS W/ FOLIC ACID TABLET (FP) PO SCH (10:38)
[2018-06-10] MEDS: NICOTINE 21 MG/24 HOURS TOPICAL PATCH TD SCH (10:38)
--- NOTE | 2018-06-10 11:23 | PN ---
S CIWA - CIWA Score Nausea/Vomitin-Mild Nausea/No Vomiting Muscle Tremors: 2 Anxiety: 1-Mildly Anxious Agitation: 1-Slight > Activity Paroxysmal Sweats: 1-Minimal Palms Moist Orientation: 0-Oriented Tacttile Disturbances: 0-None Auditory Disturbances: 0-None Visual Disturbances: 0-None Headache: 1-Very Mild CIWA-Ar Total Score: 7 [facility] Progress Note (SOAP) Subjective: tremor sweating restlessness social with peers in day room Objective: 06/10/18 11:21 Vital Signs Temperature 96.5 F L 06/10/18 09:32 Pulse Rate 62 06/10/18 09:32 Respiratory Rate 18 06/10/18 09:32 Blood Pressure 121/65 06/10/18 09:32 O2 Sat by Pulse Oximetry (%) Laboratory Last Values WBC 6.3 K/mm3 (4.0-10.0) 06/09/18 08:00 RBC 4.23 M/mm3 (4.00-5.60) 06/09/18 08:00 Hgb 13.2 GM/dL (11.7-16.9) 06/09/18 08:00 Hct 37.7 % (35.4-49) D 06/09/18 08:00 MCV 89.1 fl (80-96) 06/09/18 08:00 MCH 31.2 pg (25.7-33.7) 06/09/18 08:00 MCHC 35.1 g/dl (32.0-35.9) 06/09/18 08:00 RDW 13.5 % (11.9-15.9) 06/09/18 08:00 Plt Count 252 K/MM3 (134-434) D 06/09/18 08:00 MPV 7.3 fl (7.5-11.1) L 06/09/18 08:00 Sodium 139 mmol/L (136-145) 06/09/18 08:00 Potassium 3.4 mmol/L (3.5-5.1) L 06/09/18 08:00 Chloride 101 mmol/L (98-107) 06/09/18 08:00 Carbon Dioxide 26 mmol/L (21-32) 06/09/18 08:00 Anion Gap 11 MMOL/L (8-16) 06/09/18 08:00 BUN 10 mg/dL (7-18) 06/09/18 08:00 Creatinine 0.6 mg/dL (0.55-1.3) 06/09/18 08:00 Creat Clearance w eGFR > 60 (>60) 06/09/18 08:00 POC Glucometer 162 UNITS (80-120) 06/10/18 07:07 Random Glucose 149 mg/dL (74-106) H 06/09/18 08:00 Calcium 8.0 mg/dL (8.5-10.1) L 06/09/18 08:00 Total Bilirubin 0.4 mg/dL (0.2-1) 06/09/18 08:00 AST 16 U/L (15-37) 06/09/18 08:00 ALT 16 U/L (13-61) 06/09/18 08:00 Alkaline Phosphatase 112 U/L (45-117) 06/09/18 08:00 Total Protein 7.0 g/dl (6.4-8.2) 06/09/18 08:00 Albumin 3.6 g/dl (3.4-5.0) 06/09/18 08:00 RPR Titer Nonreactive (NONREACTIVE) 06/09/18 08:00 HIV 1&2 Antibody Screen Negative 06/09/18 08:00 HIV P24 Antigen Negative 06/09/18 08:00 lab noted Assessment: 06/10/18 11:22 withdrawal sx received potassim 40 meq one dose yesterday addition 10 meq one dose today Plan: continue detox repeat K+
[2018-06-10] MEDS ORDERED: POTASSIUM CHLORIDE TABS 10 MEQ TABLET.ER (FP) PO SCH (12:15)
[2018-06-10 14:35] VITALS: BP 127/84; PULSE 82; TEMP 97.2
--- NOTE | 2018-06-10 15:10 | DS ---
[facility] Detox Discharge Summary Admission Date: 06/09/18 Discharge Date: 06/10/18 - History Present History: Alcohol Dependence Additional Comments: 53 years old male admitted on 06/08/18 for alcohol withdrawal stabilization insists to leave the detox unit that he is homeless and his friend is willing to take him in today and he has to make a few phone calls to 12 step community self help meetings friends patient is motivate to maintain sober through community network operations lead system patient is alert no acute distress denies suicidal ideation Pertinent Past History: encourage the patient to utilize community health services such as urgent care [facility] etc for hypertension management as well as self management dietary regimen - Physical Exam Results Vital Signs: Vital Signs Temperature 97.2 F L 06/10/18 14:34 Pulse Rate 82 06/10/18 14:34 Respiratory Rate 18 06/10/18 14:34 Blood Pressure 127/84 06/10/18 14:34 O2 Sat by Pulse Oximetry (%) Pertinent Admission Physical Exam Findings: alcohol withdrawal sx Laboratory Last Values WBC 6.3 K/mm3 (4.0-10.0) 06/09/18 08:00 RBC 4.23 M/mm3 (4.00-5.60) 06/09/18 08:00 Hgb 13.2 GM/dL (11.7-16.9) 06/09/18 08:00 Hct 37.7 % (35.4-49) D 06/09/18 08:00 MCV 89.1 fl (80-96) 06/09/18 08:00 MCH 31.2 pg (25.7-33.7) 06/09/18 08:00 MCHC 35.1 g/dl (32.0-35.9) 06/09/18 08:00 RDW 13.5 % (11.9-15.9) 06/09/18 08:00 Plt Count 252 K/MM3 (134-434) D 06/09/18 08:00 MPV 7.3 fl (7.5-11.1) L 06/09/18 08:00 Sodium 139 mmol/L (136-145) 06/09/18 08:00 Potassium 3.4 mmol/L (3.5-5.1) L 06/09/18 08:00 Chloride 101 mmol/L (98-107) 06/09/18 08:00 Carbon Dioxide 26 mmol/L (21-32) 06/09/18 08:00 Anion Gap 11 MMOL/L (8-16) 06/09/18 08:00 BUN 10 mg/dL (7-18) 06/09/18 08:00 Creatinine 0.6 mg/dL (0.55-1.3) 06/09/18 08:00 Creat Clearance w eGFR > 60 (>60) 06/09/18 08:00 POC Glucometer 162 UNITS (80-120) 06/10/18 07:07 Random Glucose 149 mg/dL (74-106) H 06/09/18 08:00 Calcium 8.0 mg/dL (8.5-10.1) L 06/09/18 08:00 Total Bilirubin 0.4 mg/dL (0.2-1) 06/09/18 08:00 AST 16 U/L (15-37) 06/09/18 08:00 ALT 16 U/L (13-61) 06/09/18 08:00 Alkaline Phosphatase 112 U/L (45-117) 06/09/18 08:00 Total Protein 7.0 g/dl (6.4-8.2) 06/09/18 08:00 Albumin 3.6 g/dl (3.4-5.0) 06/09/18 08:00 RPR Titer Nonreactive (NONREACTIVE) 06/09/18 08:00 HIV 1&2 Antibody Screen Negative 06/09/18 08:00 HIV P24 Antigen Negative 06/09/18 08:00 lab noted patient agrees to eat potassium rich food - Treatment Hospital Course: Detox Protocol Followed, Responded well Patient has Accepted a Rehab Referral to: 12 step community self help support groups - Medication Discharge Medications: Ambulatory Orders Lisinopril [Prinivil] 10 mg PO BID #14 tablet 06/10/18 - Diagnosis (1) Alcohol dependence with uncomplicated withdrawal Status: Acute (2) Asthma Status: Chronic Qualifiers: Asthma severity: mild Asthma persistence: intermittent Asthma complication type: with status asthmaticus Qualified Code(s): J45.22 - Mild intermittent asthma with status asthmaticus (3) Hypertension Status: Chronic Qualifiers: Hypertension type: essential hypertension Qualified Code(s): I10 - Essential (primary) hypertension (4) Nicotine dependence Status: Acute Qualifiers: Nicotine product type: cigarettes Substance use status: in withdrawal Qualified Code(s): F17.213 - Nicotine dependence, cigarettes, with withdrawal (5) Substance induced mood disorder Status: Suspected - AMA Did Patient Leave Against Medical Advice: Yes
[2018-06-11] MEDS ORDERED: chlordiazePOXIDE 5 MG CAPSULE PO SCH (05:00)
[2018-06-12] MEDS ORDERED: chlordiazePOXIDE HCL 10 MG CAPSULE PO SCH (05:00)
== END 2018-06-10 14:30 | disposition left against medical advice (07) | DRG 770 ==
LOC: YASAS 21:19 → Y3N 06-09
PROVIDERS: ADMIT Surgery; ATTEND Surgery
PROC: HZ2ZZZZ Detoxification Services for Substance Abuse Treatment (ICD-10-PCS; principal; 2018-06-09)
DX: F10.230 Alcohol dependence with withdrawal, uncomplicated (principal); F17.213 Nicotine dependence, cigarettes, with withdrawal; F34.1 Dysthymic disorder; F19.24 Other psychoactive substance dependence with psychoactive substance-induced mood disorder; I10 Essential (primary) hypertension; E11.9 Type 2 diabetes mellitus without complications; J45.22 Mild intermittent asthma with status asthmaticus; E87.6 Hypokalemia; M54.2 Cervicalgia; M54.5 Low back pain; K00.0 Anodontia; R23.2 Flushing; Z91.89 Other specified personal risk factors, not elsewhere classified; Z91.14 Patient's other noncompliance with medication regimen
CPT/HCPCS: 36415; 80053; 82962; 85027; 86593; 87389; 93005; 93010

== ENCOUNTER 2020-07-11 21:52 | Inpatient (IN) | payer OTHER ==
[2020-07-11 22:38] VITALS: BMI 29.2
[2020-07-11] MEDS ORDERED: MAGNESIUM CITRATE 300 ML BOTTLE PO PRN (23:22)
[2020-07-11] MEDS ORDERED: chlordiazePOXIDE HCL 25 MG CAPSULE PO PRN (23:22)
[2020-07-11] MEDS ORDERED: MAGNESIUM HYDROX 2400MG/30ML ORAL SUSPENSION 30 ML CUP PO PRN (23:22)
[2020-07-11] MEDS ORDERED: ACETAMINOPHEN 325 MG TABLET (FP) PO PRN ×2 (23:22)
[2020-07-11] MEDS ORDERED: NICOTINE POLACRILEX 2 MG GUM BUC PRN (23:22)
[2020-07-11] MEDS ORDERED: METHOCARBAMOL 500 MG TABLET PO PRN (23:22)
[2020-07-11] MEDS ORDERED: MENTHOL/PHENOL 1 EACH UD MM PRN (23:22)
[2020-07-11] MEDS ORDERED: BISMUTH SUBSALICYLATE 524 MG/30 ML UD PO PRN (23:22)
[2020-07-11] MEDS ORDERED: MAG HYDROX/AL HYDROX/SIMETH 30 ML UNIT-DOSE CUP PO PRN (23:22)
[2020-07-11] MEDS ORDERED: IBUPROFEN 400 MG TABLET (FP) PO PRN (23:22)
[2020-07-11] MEDS ORDERED: ONDANSETRON *ODT* 4 MG TABLET SL PRN (23:22)
[2020-07-12] MEDS: chlordiazePOXIDE HCL 25 MG CAPSULE PO SCH ×5 (01:45→22:39)
[2020-07-12] MEDS: NICOTINE 21 MG/24 HOURS TOPICAL PATCH TD SCH (10:44)
[2020-07-12] MEDS: PRENATAL VITAMINS W/ FOLIC ACID TABLET (FP) PO SCH (10:44)
[2020-07-12 11:03] LABS: ALBUMIN 3.4 g/dl (3.4-5.0); BLOOD UREA NITROGEN 12.4 mg/dL (7-18)
[2020-07-12 11:04] LABS: POTASSIUM 4.4 mmol/L (3.5-5.1)
[2020-07-12 11:07] LABS: CREATININE 0.7 mg/dL (0.55-1.3)
[2020-07-12 11:08] LABS: BILIRUBIN,TOTAL 0.7 mg/dL (0.2-1); TOT PROT 6.5 g/dl (6.4-8.2)
[2020-07-12 11:14] LABS: HEMOGLOBIN 13.4 GM/dL (11.7-16.9); MCH 30.5 pg (25.7-33.7); MCHC 34.3 g/dl (32.0-35.9); MEAN CELL VOLUME 88.9 fl (80-96); MEAN PLT VOLUME 8.3 fl (7.5-11.1); PLATELET COUNT 192 K/MM3 (134-434); RBC 4.38 M/mm3 (4.00-5.60); RDW 14.9 % (11.9-15.9); WHITE BLOOD COUNT 6.8 K/mm3 (4.0-10.0)
[2020-07-12] MEDS ORDERED: MELATONIN 5 MG TABLETS PO SCH (22:00)
[2020-07-12] MEDS: THIAMINE HCL 100 MG TABLET (FP) PO SCH (22:38)
[2020-07-12] MEDS: LISINOPRIL 10 MG TABLET PO SCH (22:39)
[2020-07-12] MEDS: MELATONIN 5 MG TABLETS PO PRN (22:40)
[2020-07-13] MEDS: chlordiazePOXIDE HCL 25 MG CAPSULE PO SCH ×4 (05:23→22:27)
[2020-07-13] MEDS: LISINOPRIL 10 MG TABLET PO SCH ×2 (10:10→22:26)
[2020-07-13] MEDS: PRENATAL VITAMINS W/ FOLIC ACID TABLET (FP) PO SCH (10:11)
[2020-07-13] MEDS: NICOTINE 21 MG/24 HOURS TOPICAL PATCH TD SCH (10:11)
[2020-07-13] MEDS: THIAMINE HCL 100 MG TABLET (FP) PO SCH (22:26)
[2020-07-13] MEDS: MELATONIN 5 MG TABLETS PO PRN (22:28)
[2020-07-14] MEDS ORDERED: chlordiazePOXIDE HCL 10 MG CAPSULE PO PRN
[2020-07-14] MEDS: chlordiazePOXIDE HCL 10 MG CAPSULE PO SCH ×4 (06:30→22:32)
[2020-07-14] MEDS: PRENATAL VITAMINS W/ FOLIC ACID TABLET (FP) PO SCH (10:11)
[2020-07-14] MEDS: LISINOPRIL 10 MG TABLET PO SCH ×2 (10:11→22:32)
[2020-07-14] MEDS: NICOTINE 21 MG/24 HOURS TOPICAL PATCH TD SCH (10:11)
[2020-07-14] MEDS: THIAMINE HCL 100 MG TABLET (FP) PO SCH (22:32)
[2020-07-14] MEDS: MELATONIN 5 MG TABLETS PO PRN (22:33)
[2020-07-15] MEDS: chlordiazePOXIDE HCL 10 MG CAPSULE PO SCH ×2 (05:26→18:04)
[2020-07-15] MEDS: NICOTINE 21 MG/24 HOURS TOPICAL PATCH TD SCH (10:10)
[2020-07-15] MEDS: LISINOPRIL 10 MG TABLET PO SCH ×2 (10:10→22:31)
[2020-07-15] MEDS: PRENATAL VITAMINS W/ FOLIC ACID TABLET (FP) PO SCH (10:10)
[2020-07-15] MEDS: THIAMINE HCL 100 MG TABLET (FP) PO SCH (22:31)
[2020-07-15] MEDS: MELATONIN 5 MG TABLETS PO PRN (22:31)
[2020-07-16] MEDS ORDERED: chlordiazePOXIDE HCL 10 MG CAPSULE PO ONE (05:00)
[2020-07-16 09:01] VITALS: BP 112/58; PULSE 76; TEMP 98.3
[2020-07-16] MEDS: PRENATAL VITAMINS W/ FOLIC ACID TABLET (FP) PO SCH (10:07)
[2020-07-16] MEDS: NICOTINE 21 MG/24 HOURS TOPICAL PATCH TD SCH (10:07)
[2020-07-16] MEDS: LISINOPRIL 10 MG TABLET PO SCH (10:07)
== END 2020-07-16 10:32 | disposition home or self-care (01) | DRG 774 ==
LOC: YASAS 21:52 → Y6N 23:15
PROVIDERS: ADMIT Allergy & Immunology; ATTEND Allergy & Immunology
PROC: HZ2ZZZZ Detoxification Services for Substance Abuse Treatment (ICD-10-PCS; principal; 2020-07-11)
DX: F10.230 Alcohol dependence with withdrawal, uncomplicated (principal); F14.20 Cocaine dependence, uncomplicated; F17.210 Nicotine dependence, cigarettes, uncomplicated; F34.1 Dysthymic disorder; E11.42 Type 2 diabetes mellitus with diabetic polyneuropathy; E78.5 Hyperlipidemia, unspecified; G47.00 Insomnia, unspecified; I10 Essential (primary) hypertension; J45.20 Mild intermittent asthma, uncomplicated; Z91.5 Personal history of self-harm; Z98.890 Other specified postprocedural states; Z56.0 Unemployment, unspecified; Z59.0 Homelessness
CPT/HCPCS: 36415; 80053; 82962; 85027; 86780; 93005; 93010; C9803; U0003; U0005

== ENCOUNTER 2022-08-27 10:51 | Inpatient (IN) | payer OTHER ==
[2022-08-27 11:59] VITALS: BMI 25.8
[2022-08-27] MEDS ORDERED: chlordiazePOXIDE HCL 25 MG CAPSULE PO PRN (17:37)
[2022-08-27] MEDS ORDERED: ACETAMINOPHEN 325 MG TABLET (FP) PO PRN ×2 (17:39)
[2022-08-27] MEDS ORDERED: NICOTINE POLACRILEX 2 MG GUM BUC PRN (17:39)
[2022-08-27] MEDS ORDERED: DICYCLOMINE HCL 10 MG CAPSULE PO PRN (17:39)
[2022-08-27] MEDS ORDERED: P-EPHED 60MG/TRIPROLIDI 2.5MG TABLET PO PRN (17:39)
[2022-08-27] MEDS ORDERED: ONDANSETRON *ODT* 4 MG TABLET SL PRN (17:39)
[2022-08-27] MEDS ORDERED: NICOTINE 7 MG/24 HOURS TOPICAL PATCH TD PRN (17:39)
[2022-08-27] MEDS ORDERED: IBUPROFEN 400 MG TABLET (FP) PO PRN (17:39)
[2022-08-27] MEDS ORDERED: BENZOCAINE/MENTHOL (CHLORASEPTIC ) LOZENGE MM PRN (17:39)
[2022-08-27] MEDS ORDERED: LOPERAMIDE HCL 2 MG CAPSULE PO PRN (17:39)
[2022-08-27] MEDS ORDERED: guaiFENesin 600 MG TABLET.ER (FP) PO PRN (17:39)
[2022-08-27] MEDS ORDERED: MAG HYDROX/AL HYDROX/SIMETH 30 ML UNIT-DOSE CUP PO PRN (17:39)
[2022-08-27] MEDS ORDERED: BISMUTH SUBSALICYLATE 524 MG/30 ML PO PRN (17:39)
[2022-08-27] MEDS ORDERED: BENZONATATE 200 MG CAPSULE PO PRN (17:39)
[2022-08-27] MEDS ORDERED: POLYETHYLENE GLYCOL (HEALTHYLAX) 3350 17 GM PACKET PO PRN (17:39)
[2022-08-27] MEDS ORDERED: MAGNESIUM HYDROX 2400MG/30ML ORAL SUSPENSION 30 ML CUP PO PRN (17:39)
[2022-08-27] MEDS ORDERED: MELATONIN 5 MG TABLETS PO PRN (17:39)
[2022-08-27] MEDS ORDERED: IBUPROFEN 600 MG TABLET (FP) PO PRN (17:39)
[2022-08-27] MEDS ORDERED: chlordiazePOXIDE HCL 25 MG CAPSULE ONE (17:42)
[2022-08-27] MEDS: chlordiazePOXIDE HCL 25 MG CAPSULE PO SCH ×2 (17:45→22:21)
[2022-08-27] MEDS: THIAMINE HCL 100 MG TABLET (FP) PO SCH (22:18)
[2022-08-28] MEDS: chlordiazePOXIDE HCL 25 MG CAPSULE PO SCH ×2 (05:55→10:38)
[2022-08-28] MEDS ORDERED: BENZOCAINE 28 GM HEMORRHOIDAL OINTMENT RC PRN (09:21)
[2022-08-28] MEDS ORDERED: PRENATAL VITAMINS W/ FOLIC ACID TABLET (FP) PO SCH (10:00)
[2022-08-28 11:05] LABS: POTASSIUM 3.8 mmol/L (3.5-5.1)
[2022-08-28 11:07] LABS: HEMATOCRIT 29.5 % (35.4-49); HEMOGLOBIN 10.4 GM/dL (11.7-16.9); MCHC 35.1 g/dl (32.0-35.9); MEAN CELL VOLUME 93.9 fl (80-96); MEAN PLT VOLUME 8.7 fl (7.5-11.1); PLATELET COUNT 413 10^3/uL (134-434); RBC 3.14 M/mm3 (4.00-5.60); RDW 15.3 % (11.9-15.9); WHITE BLOOD COUNT 7.5 K/mm3 (4.0-10.0)
[2022-08-28 11:14] LABS: ALBUMIN 2.8 g/dl (3.4-5.0); BLOOD UREA NITROGEN 3.6 mg/dL (7-18); CALCIUM 9.3 mg/dL (8.5-10.1)
[2022-08-28 11:17] LABS: CREATININE 0.6 mg/dL (0.55-1.3)
[2022-08-28 11:18] LABS: BILIRUBIN,TOTAL 3.4 mg/dL (0.2-1)
[2022-08-28 11:19] LABS: TOT PROT 6.6 g/dl (6.4-8.2)
[2022-08-28] MEDS ORDERED: LORazepam 1 MG TABLET PO PRN (11:50)
[2022-08-28 17:06] VITALS: RESP 18; TEMP 98.4
[2022-08-28] MEDS: LORazepam 2 MG TABLET PO SCH ×2 (17:44→22:48)
[2022-08-28 21:07] VITALS: BP 124/71; PULSE 93
[2022-08-28] MEDS: THIAMINE HCL 100 MG TABLET (FP) PO SCH (22:48)
[2022-08-29] MEDS ORDERED: chlordiazePOXIDE HCL 25 MG CAPSULE PO SCH (05:00)
[2022-08-30] MEDS ORDERED: chlordiazePOXIDE HCL 10 MG CAPSULE PO PRN
[2022-08-30] MEDS ORDERED: chlordiazePOXIDE HCL 10 MG CAPSULE PO SCH (05:00)
[2022-08-30] MEDS ORDERED: LORazepam 1 MG TABLET PO SCH (05:00)
[2022-08-31] MEDS ORDERED: LORazepam 0.5 MG TABLET PO PRN
[2022-08-31] MEDS ORDERED: LORazepam 0.5 MG TABLET PO SCH (05:00)
[2022-09-01] MEDS ORDERED: LORazepam 0.5 MG TABLET PO ONE (05:00)
[2022-09-01] MEDS ORDERED: chlordiazePOXIDE HCL 10 MG CAPSULE PO ONE (05:00)
== END 2022-08-29 07:17 | disposition short-term general hospital (02) | DRG 775 ==
LOC: YASAS 10:51 → Y3N 17:42
PROVIDERS: ADMIT Allergy & Immunology; ATTEND Surgery
PROC: HZ2ZZZZ Detoxification Services for Substance Abuse Treatment (ICD-10-PCS; principal; 2022-08-27)
DX: F10.230 Alcohol dependence with withdrawal, uncomplicated (principal); F17.210 Nicotine dependence, cigarettes, uncomplicated; K70.9 Alcoholic liver disease, unspecified; E87.1 Hypo-osmolality and hyponatremia; K59.00 Constipation, unspecified; K64.9 Unspecified hemorrhoids; R60.0 Localized edema; R26.89 Other abnormalities of gait and mobility; R29.6 Repeated falls
CPT/HCPCS: 36415; 80053; 82962; 85027; 86780

== ENCOUNTER 2022-08-28 22:34 | Inpatient (IN) | payer OTHER ==
[2022-08-28 22:54] VITALS: BMI 29.5
[2022-08-28] MEDS ORDERED: ALBUTEROL SO4 2.5/IPRATROPIUM 0.5 INH SOL 3 ML VIAL.NEB. NEB ONE ×2 (23:20→23:34)
[2022-08-28] MEDS ORDERED: morphine CARPU-JECT 2 MG/1 ML DISP.SYRIN IVPUSH ONE (23:20)
[2022-08-28] MEDS ORDERED: LACTATED RINGERS SOLUTION 1000 ML INFUS.BAG IV ONE (23:20)
[2022-08-29] MEDS ORDERED: LORazepam 2 MG TABLET PO ONE (00:10)
[2022-08-29 00:26] LABS: BASO % 1.2 % (0-2.0); EOS % 1.1 % (0-4.5); HEMATOCRIT 31.8 % (35.4-49); HEMOGLOBIN 10.8 GM/dL (11.7-16.9); LYMPH % 17.3 % (8-40); MCH 32.3 pg (25.7-33.7); MEAN CELL VOLUME 95.2 fl (80-96); MEAN PLT VOLUME 8.1 fl (7.5-11.1); MONO % 5.4 % (3.8-10.2); PLATELET COUNT 380 10^3/uL (134-434); RBC 3.34 M/mm3 (4.00-5.60); RDW 15.5 % (11.9-15.9); WHITE BLOOD COUNT 7.3 K/mm3 (4.0-10.0)
[2022-08-29 00:33] LABS: INR 1.17 (0.83-1.09); PROTHROMBIN TIME (PATIENT) 13.6 SEC (9.7-13.0)
[2022-08-29 00:36] LABS: ACTIVATED PTT 31.1 SECONDS (25.2-36.5)
[2022-08-29 00:45] LABS: POTASSIUM 3.7 mmol/L (3.5-5.1)
[2022-08-29 00:47] LABS: BLOOD UREA NITROGEN 3.8 mg/dL (7-18)
[2022-08-29 00:48] LABS: ALBUMIN 2.7 g/dl (3.4-5.0)
[2022-08-29 00:51] LABS: CREATININE 0.7 mg/dL (0.55-1.3)
[2022-08-29 00:52] LABS: BILIRUBIN,TOTAL 2.3 mg/dL (0.2-1); TOT PROT 6.5 g/dl (6.4-8.2)
[2022-08-29] MEDS ORDERED: LORazepam 1 MG TABLET ONE (01:04)
[2022-08-29] MEDS ORDERED: ACETAMINOPHEN 1000 MG/100 ML BAG IVPB ONE (02:01)
[2022-08-29] MEDS ORDERED: CEFTRIAXONE 1 GM in DEXTROSE 5%-WATER - 100 ML IVPB ONE (02:01)
[2022-08-29] MEDS ORDERED: MINERAL OIL ENEMA 133 ML ENEMA PR ONE (02:02)
[2022-08-29] MEDS ORDERED: CEFTRIAXONE 1 GM/50 ML BAG ONE (02:37)
[2022-08-29] MEDS ORDERED: ACETAMINOPHEN INJECTION 100 ML IVPB ONE (02:37)
[2022-08-29] MEDS ORDERED: chlordiazePOXIDE HCL 25 MG CAPSULE PO PRN (02:40)
[2022-08-29] MEDS ORDERED: SODIUM CHLORIDE 1,000 ML IV STA (02:40)
[2022-08-29] MEDS ORDERED: SENNOSIDES 8.6MG TABLET (FP) PO PRN (02:40)
[2022-08-29] MEDS ORDERED: FOLIC ACID 5 MG/1 ML SQ ONE (02:55)
[2022-08-29 04:04] LABS: BILIRUBIN,DIRECT 1.9 mg/dL (0.0-0.2)
[2022-08-29 06:45] LABS: HEMATOCRIT 26.6 % (35.4-49); HEMOGLOBIN 9.4 GM/dL (11.7-16.9); MCH 33.7 pg (25.7-33.7); MCHC 35.4 g/dl (32.0-35.9); MEAN CELL VOLUME 95.2 fl (80-96); MEAN PLT VOLUME 8.4 fl (7.5-11.1); PLATELET COUNT 303 10^3/uL (134-434); WHITE BLOOD COUNT 4.7 K/mm3 (4.0-10.0)
[2022-08-29 06:51] LABS: CHLORIDE 100 mmol/L (98-107); POTASSIUM 3.2 mmol/L (3.5-5.1); SODIUM 134 mmol/L (136-145)
[2022-08-29 06:56] LABS: ALBUMIN 2.3 g/dl (3.4-5.0); ANION GAP 5 MMOL/L (8-16); CALCIUM 8.3 mg/dL (8.5-10.1); CO2 29 mmol/L (21-32); GLUCOSE,RANDOM 115 mg/dL (74-106)
[2022-08-29 06:59] LABS: BILIRUBIN,DIRECT 1.6 mg/dL (0.0-0.2)
[2022-08-29 07:00] LABS: CREATININE 0.6 mg/dL (0.55-1.3)
[2022-08-29 07:01] LABS: LDH 166 U/L (87-246); TOT PROT 5.4 g/dl (6.4-8.2)
[2022-08-29 07:16] LABS: BLOOD UREA NITROGEN 2.8 mg/dL (7-18)
[2022-08-29 08:58] LABS: HIV INTERPRETATION NEGATIVE (NEGATIVE)
[2022-08-29] MEDS ORDERED: DOCUSATE SODIUM 100 MG CAPSULE (FP) PO SCH (10:00)
[2022-08-29] MEDS ORDERED: CEFTRIAXONE 1 GM in DEXTROSE 5%-WATER - 50 ML IVPB SCH (10:00)
[2022-08-29] MEDS ORDERED: LORazepam 1 MG TABLET PO PRN (10:38)
[2022-08-29] MEDS ORDERED: LORazepam 2 MG TABLET PO SCH (11:00)
[2022-08-29] MEDS: THIAMINE HCL 200 MG/2 ML VIAL IVPB SCH (12:49)
[2022-08-29] MEDS: FOLIC ACID 1 MG TABLET (FP) PO SCH (12:50)
[2022-08-29] MEDS: NICOTINE 21 MG/24 HOURS TOPICAL PATCH TD SCH (12:50)
[2022-08-29] MEDS: POLYETHYLENE GLYCOL (HEALTHYLAX) 3350 17 GM PACKET PO SCH (18:22)
[2022-08-29] MEDS: LORazepam 1 MG TABLET PO SCH (18:23)
[2022-08-29] MEDS: KCL 10 MEQ IVPB 10 MEQ/100 ML INFUS.BAG IVPB SCH ×2 (19:09→20:29)
[2022-08-29] MEDS ORDERED: IRON SUCROSE INJECTION 200 MG in SODIUM CHLORIDE 90 ML IVPB ONE (19:30)
[2022-08-30] MEDS: POLYETHYLENE GLYCOL (HEALTHYLAX) 3350 17 GM PACKET PO SCH ×2 (00:02→06:19)
[2022-08-30] MEDS: LORazepam 1 MG TABLET PO SCH ×5 (00:02→22:29)
[2022-08-30] MEDS: KCL 10 MEQ IVPB 10 MEQ/100 ML INFUS.BAG IVPB SCH (00:03)
[2022-08-30] MEDS ORDERED: chlordiazePOXIDE HCL 25 MG CAPSULE PO SCH (05:00)
[2022-08-30] MEDS: THIAMINE HCL 200 MG/2 ML VIAL IVPB SCH (09:44)
[2022-08-30] MEDS: NICOTINE 21 MG/24 HOURS TOPICAL PATCH TD SCH (09:44)
[2022-08-30] MEDS: FOLIC ACID 1 MG TABLET (FP) PO SCH (09:44)
[2022-08-30 10:34] LABS: POTASSIUM 4.1 mmol/L (3.5-5.1)
[2022-08-30 10:36] LABS: HEMATOCRIT 27.7 % (35.4-49); HEMOGLOBIN 9.8 GM/dL (11.7-16.9); MCH 33.8 pg (25.7-33.7); MCHC 35.2 g/dl (32.0-35.9); MEAN PLT VOLUME 8.6 fl (7.5-11.1); PLATELET COUNT 293 10^3/uL (134-434); RBC 2.89 M/mm3 (4.00-5.60); RDW 15.8 % (11.9-15.9); WHITE BLOOD COUNT 4.9 K/mm3 (4.0-10.0)
[2022-08-30 10:41] LABS: CALCIUM 8.7 mg/dL (8.5-10.1)
[2022-08-30 10:42] LABS: ALBUMIN 2.2 g/dl (3.4-5.0); MAGNESIUM 1.9 mg/dL (1.8-2.4)
[2022-08-30 10:45] LABS: CREATININE 0.5 mg/dL (0.55-1.3); PHOSPHOROUS 3.2 mg/dL (2.5-4.9)
[2022-08-30 10:47] LABS: TOT PROT 5.4 g/dl (6.4-8.2)
[2022-08-31] MEDS ORDERED: chlordiazePOXIDE HCL 10 MG CAPSULE PO PRN
[2022-08-31] MEDS: MELATONIN 5 MG TABLETS PO PRN ×2 (00:48→22:28)
[2022-08-31] MEDS ORDERED: chlordiazePOXIDE HCL 10 MG CAPSULE PO SCH (05:00)
[2022-08-31] MEDS: LORazepam 1 MG TABLET PO SCH ×4 (05:45→22:28)
[2022-08-31] MEDS: FOLIC ACID 1 MG TABLET (FP) PO SCH (09:46)
[2022-08-31] MEDS: POLYETHYLENE GLYCOL (HEALTHYLAX) 3350 17 GM PACKET PO SCH ×2 (09:46→22:28)
[2022-08-31] MEDS: NICOTINE 21 MG/24 HOURS TOPICAL PATCH TD SCH (09:48)
[2022-08-31] MEDS: THIAMINE HCL 200 MG/2 ML VIAL IVPB SCH (09:48)
[2022-08-31 09:57] LABS: HEMATOCRIT 30.4 % (35.4-49); HEMOGLOBIN 10.2 GM/dL (11.7-16.9); MCH 32.5 pg (25.7-33.7); MCHC 33.5 g/dl (32.0-35.9); MEAN CELL VOLUME 96.9 fl (80-96); PLATELET COUNT 298 10^3/uL (134-434); RBC 3.13 M/mm3 (4.00-5.60); RDW 16.1 % (11.9-15.9)
[2022-08-31 10:23] LABS: POTASSIUM 3.9 mmol/L (3.5-5.1)
[2022-08-31 10:26] LABS: CALCIUM 8.3 mg/dL (8.5-10.1)
[2022-08-31 10:27] LABS: ALBUMIN 2.2 g/dl (3.4-5.0); MAGNESIUM 1.7 mg/dL (1.8-2.4)
[2022-08-31 10:30] LABS: CREATININE 0.5 mg/dL (0.55-1.3); PHOSPHOROUS 3.5 mg/dL (2.5-4.9)
[2022-08-31 10:31] LABS: BILIRUBIN,TOTAL 1.9 mg/dL (0.2-1); TOT PROT 5.4 g/dl (6.4-8.2)
[2022-08-31] MEDS ORDERED: IRON SUCROSE INJECTION 200 MG in SODIUM CHLORIDE 90 ML IVPB ONE (13:22)
[2022-08-31 20:12] VITALS: RESP 18
[2022-09-01] MEDS ORDERED: LORazepam 0.5 MG TABLET PO PRN
[2022-09-01] MEDS ORDERED: chlordiazePOXIDE HCL 10 MG CAPSULE PO SCH (05:00)
[2022-09-01] MEDS: LORazepam 0.5 MG TABLET PO SCH ×4 (05:08→22:07)
[2022-09-01] MEDS: POLYETHYLENE GLYCOL (HEALTHYLAX) 3350 17 GM PACKET PO SCH ×4 (10:08→22:07)
[2022-09-01] MEDS: FOLIC ACID 1 MG TABLET (FP) PO SCH (10:09)
[2022-09-01] MEDS: NICOTINE 21 MG/24 HOURS TOPICAL PATCH TD SCH (10:10)
[2022-09-01] MEDS: THIAMINE HCL 200 MG/2 ML VIAL IVPB SCH (10:11)
[2022-09-01 10:16] LABS: BASO % 0.9 % (0-2.0); EOS % 2.2 % (0-4.5); HEMATOCRIT 31.8 % (35.4-49); HEMOGLOBIN 10.7 GM/dL (11.7-16.9); LYMPH % 26.2 % (8-40); MCH 32.4 pg (25.7-33.7); MCHC 33.6 g/dl (32.0-35.9); MEAN CELL VOLUME 96.6 fl (80-96); MEAN PLT VOLUME 8.1 fl (7.5-11.1); MONO % 7.2 % (3.8-10.2); NEUT % 63.5 % (42.8-82.8); PLATELET COUNT 292 10^3/uL (134-434); RBC 3.29 M/mm3 (4.00-5.60); RDW 15.8 % (11.9-15.9); WHITE BLOOD COUNT 5.7 K/mm3 (4.0-10.0)
[2022-09-01 10:30] LABS: POTASSIUM 4.1 mmol/L (3.5-5.1)
[2022-09-01 10:35] LABS: CALCIUM 8.5 mg/dL (8.5-10.1)
[2022-09-01 10:36] LABS: ALBUMIN 2.3 g/dl (3.4-5.0); BLOOD UREA NITROGEN 3.9 mg/dL (7-18); MAGNESIUM 1.9 mg/dL (1.8-2.4)
[2022-09-01 10:39] LABS: CREATININE 0.5 mg/dL (0.55-1.3); PHOSPHOROUS 3.9 mg/dL (2.5-4.9)
[2022-09-01 10:40] LABS: BILIRUBIN,TOTAL 1.8 mg/dL (0.2-1); TOT PROT 5.7 g/dl (6.4-8.2)
[2022-09-01] MEDS ORDERED: ONDANSETRON 4 MG/2 ML VIAL IVPUSH PRN (11:17)
[2022-09-01 12:03] LABS: PH,URINE 7.5 (5.0-8.0); URINE APPEARANCE CLEAR; URINE BILIRUBIN NEGATIVE (NEGATIVE); URINE COLOR YELLOW; URINE GLUCOSE (UA) NEGATIVE (NEGATIVE); URINE KETONE NEGATIVE (NEGATIVE); URINE LEUK ESTERASE NEGATIVE (NEGATIVE); URINE NITRITE NEGATIVE (NEGATIVE); URINE PROTEIN NEGATIVE (NEGATIVE)
[2022-09-01 12:22] LABS: COCAINE, UR NEGATIVE (NEGATIVE); OPIATES, URI NEGATIVE (NEGATIVE); URINE BARBITURATES NEGATIVE (NEGATIVE)
[2022-09-01 12:23] LABS: PHENCYCLIDINE,URINE NEGATIVE (NEGATIVE)
[2022-09-01 12:37] LABS: METHADONE, UR NEGATIVE (NEGATIVE); URINE AMPHETAMINES NEGATIVE (NEGATIVE); URINE BENZODIAZEPINES POSITIVE (NEGATIVE)
[2022-09-01] MEDS: SENNOSIDES 8.6MG TABLET (FP) PO SCH (22:07)
[2022-09-02] MEDS ORDERED: LORazepam 0.5 MG TABLET PO ONE (05:00)
[2022-09-02] MEDS ORDERED: chlordiazePOXIDE HCL 10 MG CAPSULE PO ONE (05:00)
[2022-09-02] MEDS: POLYETHYLENE GLYCOL (HEALTHYLAX) 3350 17 GM PACKET PO SCH ×3 (05:19→21:13)
[2022-09-02] MEDS: FOLIC ACID 1 MG TABLET (FP) PO SCH (09:26)
[2022-09-02] MEDS: THIAMINE HCL 200 MG/2 ML VIAL IVPB SCH (09:27)
[2022-09-02] MEDS: NICOTINE 21 MG/24 HOURS TOPICAL PATCH TD SCH (09:27)
[2022-09-02 09:59] LABS: HEMATOCRIT 30.8 % (35.4-49); HEMOGLOBIN 10.4 GM/dL (11.7-16.9); MCH 32.6 pg (25.7-33.7); MCHC 33.8 g/dl (32.0-35.9); MEAN CELL VOLUME 96.2 fl (80-96); MEAN PLT VOLUME 7.7 fl (7.5-11.1); PLATELET COUNT 231 10^3/uL (134-434); RDW 15.7 % (11.9-15.9); WHITE BLOOD COUNT 5.4 K/mm3 (4.0-10.0)
[2022-09-02 10:15] LABS: POTASSIUM 3.8 mmol/L (3.5-5.1)
[2022-09-02 10:19] LABS: ALBUMIN 2.3 g/dl (3.4-5.0); BLOOD UREA NITROGEN 4.5 mg/dL (7-18); CALCIUM 8.4 mg/dL (8.5-10.1); MAGNESIUM 1.8 mg/dL (1.8-2.4)
[2022-09-02 10:22] LABS: CREATININE 0.6 mg/dL (0.55-1.3); PHOSPHOROUS 3.4 mg/dL (2.5-4.9)
[2022-09-02 10:24] LABS: BILIRUBIN,TOTAL 1.7 mg/dL (0.2-1); TOT PROT 5.7 g/dl (6.4-8.2)
[2022-09-02] MEDS: MELATONIN 5 MG TABLETS PO PRN ×2 (17:00→21:13)
[2022-09-02] MEDS: SENNOSIDES 8.6MG TABLET (FP) PO SCH (21:13)
[2022-09-03] MEDS: POLYETHYLENE GLYCOL (HEALTHYLAX) 3350 17 GM PACKET PO SCH (05:46)
[2022-09-03 08:58] LABS: HEMATOCRIT 30.4 % (35.4-49); HEMOGLOBIN 10.5 GM/dL (11.7-16.9); MCH 33.3 pg (25.7-33.7); MCHC 34.6 g/dl (32.0-35.9); MEAN CELL VOLUME 96.3 fl (80-96); MEAN PLT VOLUME 8.3 fl (7.5-11.1); PLATELET COUNT 223 10^3/uL (134-434); RBC 3.16 M/mm3 (4.00-5.60); RDW 15.5 % (11.9-15.9); WHITE BLOOD COUNT 6.1 K/mm3 (4.0-10.0)
[2022-09-03 09:11] LABS: POTASSIUM 3.8 mmol/L (3.5-5.1)
[2022-09-03 09:15] LABS: CALCIUM 8.3 mg/dL (8.5-10.1)
[2022-09-03 09:16] LABS: ALBUMIN 2.3 g/dl (3.4-5.0); BLOOD UREA NITROGEN 5.2 mg/dL (7-18)
[2022-09-03 09:19] LABS: CREATININE 0.5 mg/dL (0.55-1.3); PHOSPHOROUS 3.5 mg/dL (2.5-4.9)
[2022-09-03 09:20] LABS: BILIRUBIN,TOTAL 1.7 mg/dL (0.2-1)
[2022-09-03 09:21] LABS: TOT PROT 5.7 g/dl (6.4-8.2)
[2022-09-03] MEDS: NICOTINE 21 MG/24 HOURS TOPICAL PATCH TD SCH (10:37)
[2022-09-03] MEDS: FOLIC ACID 1 MG TABLET (FP) PO SCH (10:37)
[2022-09-03] MEDS: THIAMINE HCL 200 MG/2 ML VIAL IVPB SCH (10:38)
[2022-09-03 12:50] VITALS: BP 116/65; PULSE 75; TEMP 98.3
== END 2022-09-03 14:07 | disposition other institution (70) | DRG 254 ==
LOC: JER 22:34 → JERBED 08-29 02:40 → J6S 08-29 06:39 → OBSVTOIN 08-29 11:51
PROVIDERS: ADMIT Internal Medicine; ATTEND Internal Medicine
DX: K62.89 Other specified diseases of anus and rectum (principal); E11.9 Type 2 diabetes mellitus without complications; I10 Essential (primary) hypertension; E78.5 Hyperlipidemia, unspecified; K59.00 Constipation, unspecified; K64.4 Residual hemorrhoidal skin tags; K70.9 Alcoholic liver disease, unspecified; B19.10 Unspecified viral hepatitis B without hepatic coma; D50.9 Iron deficiency anemia, unspecified; R18.8 Other ascites; R94.5 Abnormal results of liver function studies; E87.1 Hypo-osmolality and hyponatremia; Z91.148 Patient's other noncompliance with medication regimen for other reason; F10.20 Alcohol dependence, uncomplicated; K76.0 Fatty (change of) liver, not elsewhere classified
CPT/HCPCS: 0241U-QW; 36415; 71045-TC-FY; 74177-TC; 76705-TC; 80048; 80053; 80076; 80307; 81003; 82140; 82248; 82272; 82550; 82570; 82607; 82728; 82746; 83540; 83550; 83615; 83735; 84100; 84300; 84466; 85025; 85027; 85045; 85610; 85730; 86140; 86705; 86803; 86850; 86900; 86901; 87340; 87389; 87517; 87522; 93005; 93010; 93306-TC; 97116-GP; 97162-GP; 99285-25; G0378; J1756; Q9967